=== PATIENT | male | born 1965 | race African-American/Black ===

== ENCOUNTER 2022-05-06 02:49 | Emergency (ER) | payer OTHER ==
[~2022-05-06] VITALS: Ht 188 cm; Wt 87.5 kg
[2022-05-06 02:55] VITALS: BP 121/80
[2022-05-06] MEDS ORDERED: BENZ-13 PO (03:26)
[2022-05-06] MEDS ORDERED: PAXLOVID PO (03:26)
[2022-05-06] MEDS ORDERED: PSEU120T83 PO (03:26)
[2022-05-06] MEDS ORDERED: KETO10TA2 PO (03:26)
== END 2022-05-06 03:45 | disposition home or self-care (01) ==
LOC: ER 02:52
DX: U07.1 COVID-19 (principal); F17.200 Nicotine dependence, unspecified, uncomplicated; Z79.899 Other long term (current) drug therapy

== ENCOUNTER 2022-06-20 22:35 | Emergency (ER) | payer OTHER ==
[~2022-06-20] VITALS: Ht 188 cm; Wt 86.6 kg
[~2022-06-20 22:35] MED LIST: BENZ-13 PO; KETO10TA2 PO; PAXLOVID PO; PSEU120T83 PO
--- NOTE | 2022-06-20 23:15 | NUR ---
KYLESEANDRÉS C/O RECTAL BLEED X3 MONTHS. PT IS AAO X 4, BREATHING UNLABORED. PT REPORTS HE HAS SEEN HIS PRIMARY MD FOR THE SAME REASON PRIOR. PT STATES HE HAD CT, AND ENDOSCOPY AND NOTHING WAS SEEN. PT ATTACHED TO MONITOR AND PULSE OX. AWAITING MD KERR.
[2022-06-20] MEDS ORDERED: IV NS 0.9% 1,000 ML BAG IV ONE (23:30)
[2022-06-20] MEDS ORDERED: ONDANSETRON HCL/PF 4 MG/2 ML VIAL IVP ONE (23:30)
[2022-06-20] MEDS ORDERED: MORPHINE SULFATE INJ 2 MG/ML DISP.SYRIN IV ONE (23:30)
--- NOTE | 2022-06-20 23:30 | NUR ---
PT TAKEN TO CT VIA [facility]
[2022-06-20] MEDS ORDERED: ONDANSETRON HCL/PF 4 MG/2 ML VIAL ONE (23:52)
[2022-06-20] MEDS ORDERED: MORPHINE SULFATE INJ 4 MG/ML DISP.SYRIN ONE (23:53)
--- NOTE | 2022-06-21 | NUR ---
IV LINE STARTED AT RAC 18G, BLOOD DRAWN, URINE COLLECTED, BOTH SENT TO LAB
[2022-06-21 00:04] LABS: BASOPHILS # (AUTO) 0.1 K/uL (0.0-0.2); BASOPHILS % (AUTO) 1.1 % (0.0-2.0); EOSINOPHILS % (AUTO) 4.4 % (0.0-6.0); HEMATOCRIT 42 % (39-51); HEMOGLOBIN 13.6 g/dL (13.5-17.5); LYMPHOCYTES % (AUTO) 9.2 % (20.0-44.0); MEAN CORPUSCULAR HGB CONC 33 g/dl (31.0-36.0); MEAN CORPUSCULAR VOLUME 94 fL (80-96); MONOCYTES # (AUTO) 0.4 K/uL (0.1-1.30); MONOCYTES % (AUTO) 3.6 % (2.0-12.0); NEUTROPHILS # (AUTO) 9.2 K/uL (1.8-8.9); NEUTROPHILS % (AUTO) 81.7 % (43.0-81.0); PLATELET COUNT (AUTO) 247 K/uL (150-450); RED BLOOD CELL COUNT(AUTO) 4.44 MIL/uL (4.5-6.0); WHITE BLOOD COUNT (AUTO) 11.2 K/uL (4.3-11.0)
[2022-06-21 00:08] LABS: BILIRUBIN,URINE NEGATIVE (NEGATIVE); COLOR,URINE YELLOW (YELLOW); LEUKOCYTE ESTERASE ,URINE NEGATIVE (NEGATIVE); NITRITE, URINE NEGATIVE (NEGATIVE); PH,URINE 7.5 (5.0-8.0); PROTEIN,URINE TRACE mg/dl (NEGATIVE); UGLUCOSE NEGATIVE (NEGATIVE); UROBILINOGEN,URINE 0.2 EU/dL (0.2)
[2022-06-21 00:11] LABS: BACTERIA,URINE Rare /HPF (None Seen); RBC,URINE 0-2 /HPF (0-2); SQUAMOUS EPITHELIAL CELL,UR Few /HPF (None Seen); WBC,URINE 0-2 /HPF (0-3)
[2022-06-21 00:16] LABS: CREATININE 1.2 mg/dL (0.6-1.3); POTASSIUM 3.7 mmol/L (3.5-5.1)
[2022-06-21 00:22] LABS: BILIRUBIN,DIRECT 0.1 mg/dL (0.0-0.2); BILIRUBIN,TOTAL 0.3 mg/dL (0.2-1.0); TOTAL PROTEIN, SERUM 7.4 g/dL (6.4-8.2)
[2022-06-21] MEDS ORDERED: METR500T PO (01:08)
[2022-06-21] MEDS ORDERED: CIPR-262 PO (01:08)
[2022-06-21] MEDS ORDERED: CIPROFLOXACIN HCL 500 MG TABLET ONE (01:11)
[2022-06-21] MEDS ORDERED: METRONIDAZOLE 500 MG TABLET ONE (01:11)
[2022-06-21 01:22] VITALS: BP 124/76
[2022-06-21] MEDS ORDERED: METRONIDAZOLE 500 MG TABLET PO ONE (01:30)
[2022-06-21] MEDS ORDERED: CIPROFLOXACIN HCL 500 MG TABLET PO ONE (01:30)
== END 2022-06-21 01:23 | disposition home or self-care (01) ==
LOC: ER 22:40
DX: K52.9 Noninfective gastroenteritis and colitis, unspecified (principal); J45.909 Unspecified asthma, uncomplicated; Z86.16 Personal history of COVID-19; F17.200 Nicotine dependence, unspecified, uncomplicated; Z79.899 Other long term (current) drug therapy
CPT/HCPCS: 99285; 74176; 96361; 85025; 80048; 83690; 80076; 81001; 36415; 85730; 96374; 96375; J2270; J2405